=== PATIENT | female | born 1995 | race Two or more races ===

== ENCOUNTER 2017-01-26 18:43 | Emergency (ER) | payer MEDICAID, OTHER ==
[2017-01-26] MEDS ORDERED: Lidocaine 1% PF 5 ML VIAL ONE (22:06)
[2017-01-26] MEDS ORDERED: Adacel (T-DAP) 0.5 ML VIAL ONE (22:34)
== END 2017-01-26 22:54 | disposition home or self-care (01) ==
LOC: ERS 18:43
DX: H60.391 Other infective otitis externa, right ear (principal); E03.9 Hypothyroidism, unspecified; F17.290 Nicotine dependence, other tobacco product, uncomplicated; Z79.899 Other long term (current) drug therapy
CPT/HCPCS: 90471; 90715; J2001

== ENCOUNTER 2017-09-21 15:03 | Emergency (ER) | payer OTHER ==
[~2017-09-21 15:03] MED LIST: Iopamidol 370 76% 100 ML VIAL ONE
[2017-09-21 15:39] LABS: #Eosinphils 0.3 thou/uL (0.0-0.7); #Neutrophils 5.8 thou/uL (1.40-6.50); %Basophils 0.4 % (0.0-1.0); %Eosinophils 3.4 % (0.0-10.0); %Lymphocytes 29.2 % (21.0-51.0); %Monocytes 9.8 % (0.0-10.0); %Neutrophils 57.2 % (42.0-75.0); Mean Corpuscular HGB CONC 32.7 g/dL (32.0-36.0); Mean Corpuscular Hemoglobin 30.5 pg (27.0-31.0); Mean Corpuscular Volume 93.4 fL (78.0-98.0); Mean Platelet Volume 7.5 fL (7.4-10.4); Platelet Count 361 thou/uL (130-400); White Blood Cell (WBC) Count 10.1 thou/uL (4.8-10.8)
--- NOTE | 2017-09-21 16:00 | RAD ---
CHEST 1 VIEW: Date: 09/21/17 HISTORY: Tachycardia. COMPARISON: None. FINDINGS: Normal cardiac silhouette. Pulmonary vessels and hilum are normal. Costophrenic angles are clear. No mass. No consolidation. No pneumothorax or osseous abnormalities noted. IMPRESSION: No acute cardiopulmonary process. POS: [facility]
[2017-09-21 16:01] LABS: ALT (SGPT) 30 U/L (8-55); AST (SGOT) 22 U/L (5-34); Albumin 4.4 g/dL (3.5-5.0); Alkaline Phosphatase 75 U/L (40-150); Anion Gap 11 mmol/L (10-20); BUN (Urea Nitrogen) 9 mg/dL (7.0-18.7); Bilirubin, Total 0.4 mg/dL (0.2-1.2); CK (CPK) 92 U/L (29-168); Calc. Creatinine Clearance 0 mL/min (70-130); Calcium 9.5 mg/dL (7.8-10.44); Carbon Dioxide 27 mmol/L (22-29); Chloride 106 mmol/L (98-107); Estimated GFR-MDRD 77; Globulin 3.2 g/dL (2.4-3.5); Glucose 105 mg/dL (70-105); Lipase 38 U/L (8-78); Potassium 4.3 mmol/L (3.5-5.1); Protein, Total 7.6 g/dL (6.0-8.3); Sodium 140 mmol/L (136-145)
[2017-09-21 16:04] LABS: CKMB 0.8 ng/mL (0-6.6); Troponin I Less than 0.010 ng/mL (< 0.028)
[2017-09-21 16:22] LABS: Thyroid Stimulating Hormone 4.2155 uIU/mL (0.35-4.94)
--- NOTE | 2017-09-21 17:56 | CT ---
CTA CHEST WITH CONTRAST WITH 3D VOLUME RENDERIN09/21/17 CLINICAL HISTORY: Tachycardia, elevated D-dimer. FINDINGS: There is heterogeneity of the contrast bolus which does limit assessment. No definite large, central pulmonary embolus at the level of the pulmonary trunk or main pulmonary arteries. The segmental and s ubsegmental pulmonary arterial branches are not reliably assessed due to heterogeneity of contrast wh ich could obscure potential small, peripheral emboli. There is no lobar consolidation, effusion or pn eumothorax. The thoracic aorta is grossly unremarkable within limitations. There is streak artifact/m otion artifact which does preclude reliable assessment of the proximal aspect of the thoracic aorta. IMPRESSION: No acute, large central pulmonary embolus. POS: [facility]
== END 2017-09-21 18:05 | disposition home or self-care (01) ==
LOC: ERS 15:03
DX: R00.0 Tachycardia, unspecified (principal); E03.9 Hypothyroidism, unspecified; F42.9 Obsessive-compulsive disorder, unspecified; F17.210 Nicotine dependence, cigarettes, uncomplicated; Z79.899 Other long term (current) drug therapy; M40.209 Unspecified kyphosis, site unspecified
CPT/HCPCS: 36415; 71045; 71275; 80053; 82550; 82553; 83690; 84439; 84443; 84484; 85025; 85379; 93005; 96360; 96361

== ENCOUNTER 2018-05-13 15:58 | Emergency (ER) | payer OTHER ==
[2018-05-13 16:45] LABS: #Basophils 0.1 thou/uL (0.0-0.2); #Eosinphils 0.2 thou/uL (0.0-0.7); #Lymphocytes 2.8 thou/uL (1.20-3.40); #Monocytes 0.6 thou/uL (0.11-0.59); #Neutrophils 3.3 thou/uL (1.40-6.50); %Basophils 1.2 % (0.0-1.0); %Eosinophils 2.9 % (0.0-10.0); %Lymphocytes 40.6 % (21.0-51.0); %Monocytes 8.1 % (0.0-10.0); %Neutrophils 47.2 % (42.0-75.0); Hemoglobin 16.5 g/dL (12.0-16.0); Mean Corpuscular HGB CONC 32.1 g/dL (32.0-36.0); Mean Corpuscular Hemoglobin 30.4 pg (27.0-31.0); Mean Corpuscular Volume 94.7 fL (78.0-98.0); Platelet Count 313 thou/uL (130-400); RBC Distribution Width 12.8 % (11.5-14.5); Red Blood Cell (RBC) Count 5.41 mill/uL (4.20-5.40); White Blood Cell (WBC) Count 6.9 thou/uL (4.8-10.8)
[2018-05-13 16:46] LABS: Bilirubin Negative (Negative); Blood, Urine Negative (Negative); Clarity CLOUDY (Clear); Glucose, Urine (Dipstick) Negative (Negative); Leukocyte Moderate (Negative); Nitrite Negative (Negative); Protein, Urine (Dipstick) Trace mg/dL (Neg-Trace); Specific Gravity, Urine 1.028 (1.002-1.036); Urobilinogen 0.2 mg/dL (0.2-1.0)
[2018-05-13 16:54] LABS: Amphetamine Not Detected (NotDetected); Barbiturates Screen Not Detected (NotDetected); Benzodiazepine Screen Not Detected (NotDetected); Cocaine Metabolite Screen Not Detected (NotDetected); Medtox Control Line Valid? VALID (VALID); Medtox Reader # READER 1; Methadone Not Detected (NotDetected); Methamphetamine Not Detected (NotDetected); Opiate Screen Not Detected (NotDetected); Oxycodone Screen Not Detected (NotDetected); Phencyclidine (PCP) Not Detected (NotDetected); THC/Cannabinoid Screen Not Detected (NotDetected); Tricyclic Screen Not Detected (NotDetected)
[2018-05-13 16:57] LABS: Bacteria/HPF None Seen HPF (None Seen); Hyaline Casts/LPF 0-3 HYALINE CAST LPF (0-3 Hyaline); RBC/HPF 0-3 HPF (0-3); Squamous Epithelial 0-3 HPF (0-3)
[2018-05-13 17:03] LABS: ALT (SGPT) 34 U/L (8-55); AST (SGOT) 22 U/L (5-34); Acetaminophen Less than 6.0 mcg/mL (10.0-30.0); Albumin 4.5 g/dL (3.5-5.0); Alcohol Less than 10 mg/dL (Less than 10); Alkaline Phosphatase 88 U/L (40-150); Anion Gap 14 mmol/L (10-20); BUN (Urea Nitrogen) 10 mg/dL (7.0-18.7); Bilirubin, Total 0.5 mg/dL (0.2-1.2); CK (CPK) 84 U/L (29-168); Calc. Creatinine Clearance 0 mL/min (70-130); Carbon Dioxide 24 mmol/L (22-29); Chloride 106 mmol/L (98-107); Estimated GFR-MDRD 81; Globulin 3.3 g/dL (2.4-3.5); Glucose 91 mg/dL (70-105); Potassium 3.9 mmol/L (3.5-5.1); Protein, Total 7.8 g/dL (6.0-8.3); Salicylate Less than 8.0 mg/dL (15.0-30.0); Sodium 140 mmol/L (136-145)
[2018-05-13] MEDS ORDERED: Lidocaine 1% w/Epinephrine 1:100K 20 ML VIAL ONE (17:42)
== END 2018-05-13 18:07 | disposition home or self-care (01) ==
LOC: ERS 15:58
DX: S51.812A Laceration without foreign body of left forearm, initial encounter (principal); E03.9 Hypothyroidism, unspecified; F17.210 Nicotine dependence, cigarettes, uncomplicated; Z79.899 Other long term (current) drug therapy; W45.8XXA Other foreign body or object entering through skin, initial encounter
CPT/HCPCS: 12002; 36415; 80053; 80306; 80307; 81003; 81015; 82550; 84443; 85025; J2001

== ENCOUNTER 2018-08-15 01:35 | Inpatient (IN) | payer OTHER ==
[2018-08-15 02:09] LABS: #Basophils 0.1 thou/uL (0.0-0.2); #Eosinphils 0.1 thou/uL (0.0-0.7); #Lymphocytes 3.8 thou/uL (1.20-3.40); #Monocytes 1.1 thou/uL (0.11-0.59); #Neutrophils 5.5 thou/uL (1.40-6.50); %Basophils 0.5 % (0.0-1.0); %Eosinophils 1.4 % (0.0-10.0); %Lymphocytes 35.8 % (21.0-51.0); %Monocytes 10.2 % (0.0-10.0); Hemoglobin 15.3 g/dL (12.0-16.0); Mean Corpuscular Hemoglobin 30.5 pg (27.0-31.0); Mean Corpuscular Volume 95.4 fL (78.0-98.0); Mean Platelet Volume 7.8 fL (7.4-10.4); Platelet Count 322 thou/uL (130-400); RBC Distribution Width 12.8 % (11.5-14.5); White Blood Cell (WBC) Count 10.5 thou/uL (4.8-10.8)
[2018-08-15 02:30] LABS: ALT (SGPT) 47 U/L (8-55); AST (SGOT) 28 U/L (5-34); Albumin 4.2 g/dL (3.5-5.0); Alkaline Phosphatase 97 U/L (40-150); Anion Gap 13 mmol/L (10-20); BUN (Urea Nitrogen) 10 mg/dL (7.0-18.7); Bilirubin, Total 0.4 mg/dL (0.2-1.2); Calc. Creatinine Clearance 0 mL/min (70-130); Calcium 9.9 mg/dL (7.8-10.44); Carbon Dioxide 26 mmol/L (22-29); Chloride 104 mmol/L (98-107); Estimated GFR-MDRD 80; Globulin 3.2 g/dL (2.4-3.5); Glucose 123 mg/dL (70-105); Potassium 3.9 mmol/L (3.5-5.1); Protein, Total 7.4 g/dL (6.0-8.3); Sodium 139 mmol/L (136-145)
[2018-08-15 02:47] LABS: Bilirubin Negative (Negative); Blood, Urine Negative (Negative); Glucose, Urine (Dipstick) Negative (Negative); Leukocyte Negative (Negative); Nitrite Negative (Negative); Protein, Urine (Dipstick) Negative (Neg-Trace); Urobilinogen 0.2 mg/dL (Less than 2)
[2018-08-15 02:52] LABS: Clarity Clear (Clear)
[2018-08-15 03:25] LABS: Pregnancy Test - Urine (BHCG) Negative (Negative); Pregu Control Background? CLEAR/WHITE (CLR/WHITE); Pregu Control Bar Appear? YES (CONTROL BAR); Specific Gravity 1.025 (1.002-1.036)
[2018-08-15] MEDS ORDERED: Ondansetron PF 4 MG/2 ML Vial ONE (05:44)
[2018-08-15] MEDS ORDERED: metroNIDAZOLE 500 MG/100 ML BAG ONE (05:44)
[2018-08-15] MEDS ORDERED: Morphine 4 MG/ML VIAL ONE (05:44)
--- NOTE | 2018-08-15 06:53 | CT ---
CT ABDOMEN AND PELVIS WITH CONTRAST: Date: 08/15/18 CLINICAL INDICATION: Right lower abdominal pain. No prior imaging for comparison. FINDINGS: The imaged lung bases are clear. No acute abnormality in the solid abdominal organs is identified. Th ere is mild haziness of the central mesentery with associated increased number of lymph nodes, some o f which are borderline in size. The bowel is incompletely evaluated without enteric contrast. There i s a borderline sized, 7 mm in caliber appendix seen within the right lower quadrant. There is a sligh t degree of periappendiceal haziness, nonspecific. No free air or significant free fluid. Abdominal a ayanna is normal in caliber. The osseous structures are intact. IMPRESSION: 1. Limited evaluation of the bowel without enteric contrast. There is borderline size, 7 mm in calib er appendix in the right lower quadrant with a slight degree of periappendiceal fat stranding. No CT findings to indicate a complicated appendicitis, although the possibility of early noncomplicated willian endicitis cannot be entirely excluded in the given clinical setting. Therefore, clinical correlation is essential. 2. Mild haziness in the mesentery with increased number of lymph nodes, some of which are slightly p rominent/borderline in size. This could relate to a mesenteric adenitis/panniculitis. POS: [facility]
[2018-08-15 08:55] VITALS: BP 130/84; TEMP 98.3
[2018-08-15 09:04] VITALS: BMI 39.4
--- NOTE | 2018-08-15 11:41 | HP ---
CHIEF COMPLAINT: Right-sided abdominal pain. HISTORY OF PRESENT ILLNESS: The patient is a 23-year-old genetically female, who is transitioning to a male, who reports about a 30-hour history of right-sided abdominal pain. Some mild nausea. No vomiting. Some subjective fever. PAST MEDICAL HISTORY: Hypothyroidism, back pain, morbid obesity. PAST SURGICAL HISTORY: None. MEDICATIONS: Testosterone. ALLERGIES: TO PENICILLIN AND SULFA. SOCIAL HISTORY: She is a female, transitioning to a male. She uses vaporized nicotine. Rare alcohol. FAMILY HISTORY: Hyperlipidemia. PHYSICAL EXAMINATION: VITAL SIGNS: Temperature 98.3, pulse 98, blood pressure 130/84. GENERAL: She has hirsutism about her face, chest, and abdomen. She is awake, alert, does not appear to be in any distress. HEENT: Otherwise unremarkable. LUNGS: Clear. HEART: Regular rate and rhythm. ABDOMEN: Obese, soft, mild tenderness, kind of, on the right lateral to right upper quadrant. No peritoneal signs. No palpable masses. No hernias. EXTREMITIES: Unremarkable. LABORATORY DATA: Her white count is 10, H and H are 15 and 47, platelet count 322. Electrolytes are fine, but an elevated glucose of 123. Urinalysis showed few ketones, otherwise negative. IMAGING STUDIES: I have reviewed the CT scan with the radiologist, Dr. Ledesma, and there is no evidence of acute appendicitis. In fact that he feels he can safely say, her appendix is normal, but there were some lymph nodes in the area that could be a mesenteric adenitis. ASSESSMENT: No evidence of appendicitis, but probable mesenteric adenitis. PLAN: Keep her on a liquid diet. We will give her Zofran, few pain pills, some doxycycline. Follow up with me in 1 week. Return to the ER, if pain gets worse. Job ID: [id number]
== END 2018-08-15 10:47 | disposition home or self-care (01) | DRG 395 ==
LOC: ERS 01:35 → ERHOLD 05:20
PROVIDERS: ADMIT Surgery; ATTEND Surgery
DX: I88.0 Nonspecific mesenteric lymphadenitis (principal); E03.9 Hypothyroidism, unspecified; E66.01 Morbid (severe) obesity due to excess calories; Z88.0 Allergy status to penicillin; Z88.2 Allergy status to sulfonamides; Z68.39 Body mass index [BMI] 39.0-39.9, adult
CPT/HCPCS: 36415; 74177; 80053; 81003; 81025; 85025; 87086; 96365; 96375; J0744; J2270; J2405